=== PATIENT | female | born 1975 | race Caucasian/White ===

== ENCOUNTER 2022-03-11 15:42 | Outpatient (REF) | payer OTHER, SELFPAY ==
--- NOTE | 2022-03-11 11:50 | PAPFT_PTH ---
PATIENT: Nelly Sheldon LOC: [facility] U#:[id number] AGE/SX: 46/F ROOM: RE03/11/[address]: Nataliia Mcghee MD : 1975 BED: DIS: 03/11/2022 SPEC #: [id number] RECD: 03/11/22 17:53 STATUS: SHILPI REQ #: [id number] LEYLA: 03/11/22 11:[address]: Nataliia Mcghee DEPT: [facility] Cytology RECD BY: Marry Harvey Tissues: 1 - CX/ENDOCX FOR PAP SMEARS Procedures: PAP THIN PREP/UVM Screening HPV DNA PROBE Comments: [id number]
== END 2022-03-11 15:43 | disposition home or self-care (01) ==
LOC: LBN 15:42
PROVIDERS: Visit Provider Obstetrics & Gynecology
DX: Z12.4 Encounter for screening for malignant neoplasm of cervix (principal); Z11.51 Encounter for screening for human papillomavirus (HPV)
CPT/HCPCS: 88142; 87624

== ENCOUNTER 2022-03-18 15:10 | Outpatient (REF) | payer OTHER, SELFPAY ==
[2022-03-18 16:08] LABS: ALT 22 U/L (14-59); AST 16 U/L (15-37); Albumin 4.4 g/dL (3.4-5.0); Alkaline Phosphatase 40 U/L (46-116); Anion Gap 8.8 mmol/L (3-11); BUN 13 mg/dL (7-18); Bilirubin, Total 0.7 mg/dL (0.2-1.0); CO2 29.2 mmol/L (21.0-32.0); CREATININE 0.8 mg/dL (0.55-1.02); Calcium 9.1 mg/dL (8.5-10.1); Calculated LDL 118 mg/dL (<100); Chloride 102 mmol/L (98-107); Cholesterol 194 mg/dL (<200); Estimated GFR 93.12 (mL/min/1.73m2); Glucose 77 mg/dL (74-106); HDL Cholesterol 68 mg/dL (40-60); Potassium 3.8 mmol/L (3.5-5.1); Sodium 140 mmol/L (136-145); TSH 3.11 uIU/mL (0.36-3.74); Total Protein 7.6 g/dL (6.4-8.2); Triglyceride 43 mg/dL (<150)
[2022-03-18 16:17] LABS: Vitamin D 25 Total 31.3 ng/mL (30-100)
[2022-03-18 16:26] LABS: FREE T4 1.53 ng/dL (0.76-1.46)
[2022-03-19 20:54] LABS: T3,Free 2.7 pg/mL (2.8-5.3)
[2022-03-19 21:08] LABS: T3, Total 105 ng/dL (97-169)
== END 2022-03-18 15:11 | disposition home or self-care (01) ==
LOC: NCHCN 15:10
PROVIDERS: Visit Provider Nurse Practitioner Family
DX: Z13.220 Encounter for screening for lipoid disorders (principal); E07.9 Disorder of thyroid, unspecified; E55.9 Vitamin D deficiency, unspecified
CPT/HCPCS: 80053; 80061; 82306; 84439; 84443; 84480; 84481

== ENCOUNTER → 2022-04-23 00:25 | Outpatient (CLI) | payer OTHER, SELFPAY ==
--- NOTE | 2022-04-23 07:45 | DI.MAMMO_ITS ---
Exam(s) MAMMO SCREENING EXAM: MAMMO SCREENING CLINICAL HISTORY: screening,Z12.39. TECHNIQUE: Bilateral full field digital CC and MLO mammographic images were obtained with 3D tomosyn thesis and utilizing computer aided detection (CAD). COMPARISON: Prior outside mammograms were reviewed. FINDINGS: There has been no significant change in the appearance and distribution of the fibroglandular tissue which is again noted dense, this somewhat decreasing the sensitivity mammogram for finding hidden und erlying lesions.. There are no CAD designations. There are no new spiculated masses nor malignant appearing microcalcification groups. There is no significant architectural distortion nor skin thickening-retraction. IMPRESSION: No radiographic evidence of malignancy. Dense bilateral fibroglandular tissue again evident. BI-RADS Category 1 - Negative Breast Density - Category C - Heterogeneously dense Breast density Category C or D implies that the patient has dense breast tissue. Dense breast tissue can make it harder to find cancer on a mammogram. Dense breast tissue is also associated with an incr eased risk of breast cancer. This information about the result of the mammogram report was provided to the patient to raise their awareness. Use this report when you speak with the patient about their risks for breast cancer, which includes their family history. At that time, you may recommend additional screening tests (Ultrasoun d or MRI) as these tests may add significant information. A negative radiographic report should not delay biopsy if a dominant or clinically suspicious mass is present. Up to ten percent of cancers are not identified on mammography. A negative report may reinforce clinical impression. Adenosis and dense breasts may obscure an underlying neoplasm. False positive reports average 6 to 10%. Patient will receive a letter notifying them of these results.
== END ==
PROVIDERS: Visit Provider Obstetrics & Gynecology
DX: Z12.31 Encounter for screening mammogram for malignant neoplasm of breast (principal)
CPT/HCPCS: 77063; 77067

== ENCOUNTER 2022-11-11 04:09 | Outpatient (CLI) | payer OTHER, SELFPAY ==
[2022-11-11 16:45] LABS: Abs Immature Grans 0.01 10^3/uL (0.0-0.06); Absolute Basophil Count 0.02 10^3/uL (0.0-0.2); Absolute Eosinophil Count 0.09 10^3/uL (0.0-0.7); Absolute Lymphocyte Count 2.45 10^3/uL (1.2-3.4); Absolute Monocyte Count 0.38 10^3/uL (0.1-0.8); Absolute Neutrophil Count 5.54 10^3/uL (1.2-6.7); Basophils % 0.2; Eosinophils % 1.1; HCT 37.7 % (36.0-46.0); HGB 12.3 g/dL (11.2-15.7); Immature Grans % 0.1; Lymphocytes % 28.9; MCH 28.1 pg (27.0-33.0); MCHC 32.6 % (32.0-36.0); MCV 86 fL (80-95); MPV 11.6 fL (8.0-11.0); Monocytes % 4.5; Neutrophils % 65.2; Platelet Count 243 10^3/uL (130-400); RBC 4.38 10^6/uL (3.93-5.22); RDW 12.8 % (11.7-14.6); RDW-SD 40.5 fL; WBC 8.49 10^3/uL (4.4-10.8)
[2022-11-11 17:04] LABS: Hemoglobin A1C 4.9 % (<5.7)
[2022-11-11 17:28] LABS: Bilirubin Negative (Negative); Blood Trace-lysed (Negative); Clarity Clear (Clear); Glucose Negative (Negative); Ketones Negative (Negative); Leukocyte Esterase Negative (Negative); Nitrite Negative (Negative); Specific Gravity <= 1.005 (1.005-1.025); Urobilinogen 0.2 mg/dL (Up to 0.2)
[2022-11-11 17:39] LABS: Bacteria Negative HPF (Negative); C & S Indicated? No; Casts Negative LPF (Negative); Crystals Negative HPF (Negative); Epithelial Cells Rare HPF (Negative); Mucus Negative (Negative); RBC 0-2 HPF (0-2); WBC 0-2 HPF (0-5)
[2022-11-11 17:43] LABS: Iron 32 ug/dL (50-170)
[2022-11-11 17:46] LABS: Ferritin 55 ng/mL (8-252); TSH 1.79 uIU/mL (0.36-3.74)
[2022-11-11 18:02] LABS: FREE T4 1.17 ng/dL (0.76-1.46)
[2022-11-11 22:39] LABS: T3,Free 2.9 pg/mL (2.8-5.3)
[2022-11-11 23:15] LABS: Thyroglobulin Antibody 72 U/mL (<=60); Thyroperoxidase Antibody <28 U/mL (<=60)
[2022-11-16 15:24] LABS: 25-Hydroxy D Total 44 ng/mL; 25-Hydroxy D2 <4.0 ng/mL; 25-Hydroxy D3 44 ng/mL
[2022-11-17 09:29] LABS: T3 (Triiodothyronine) Reverse 19 ng/dL (10-24)
== END 2022-11-11 04:10 | disposition home or self-care (01) ==
LOC: LBO 04:09
PROVIDERS: Visit Provider Naturopath
DX: E06.3 Autoimmune thyroiditis (principal); G43.809 Other migraine, not intractable, without status migrainosus; K63.9 Disease of intestine, unspecified; L20.89 Other atopic dermatitis; J30.1 Allergic rhinitis due to pollen; E03.9 Hypothyroidism, unspecified; D50.9 Iron deficiency anemia, unspecified; E55.9 Vitamin D deficiency, unspecified; R35.0 Frequency of micturition; R42 Dizziness and giddiness; Z13.1 Encounter for screening for diabetes mellitus
CPT/HCPCS: 36415; 82306; 86376; 81003; 81015; 82728; 83036; 83540; 84439; 84443; 84481; 84482; 85025

== ENCOUNTER 2023-02-03 12:45 | Outpatient (CLI) | payer OTHER, SELFPAY ==
[2023-02-03 09:53] LABS: C-Reactive Protein 0.21 mg/dL (0.0-0.3); Cholesterol 121 mg/dL (<200); HDL Cholesterol 48 mg/dL (40-60); TSH 1.38 uIU/mL (0.36-3.74)
[2023-02-03 09:55] LABS: Triglyceride <25 mg/dL (<150)
[2023-02-03 10:06] LABS: LDL CHOLESTEROL 72 mg/dL (<100)
[2023-02-03 19:05] LABS: T3,Free 5.5 pg/mL (2.8-5.3)
[2023-02-04 17:54] LABS: Apolipoprotein A1 121 mg/dL (>=140)
[2023-02-05 10:03] LABS: Apolipoprotein B, S 65 mg/dL
[2023-02-05 10:12] LABS: Lipoprotein (a) 19 nmol/L (<75)
== END 2023-02-03 12:46 | disposition home or self-care (01) ==
LOC: LBO 12:46
PROVIDERS: Visit Provider Naturopath
DX: E78.00 Pure hypercholesterolemia, unspecified (principal); R53.83 Other fatigue; E07.9 Disorder of thyroid, unspecified; E06.3 Autoimmune thyroiditis
CPT/HCPCS: 36415; 80061; 82172; 83695; 83721; 84443; 84481; 86140

== ENCOUNTER 2023-05-20 02:45 | Outpatient (CLI) | payer OTHER, SELFPAY ==
[2023-05-20 16:57] LABS: Iron 21 ug/dL (50-170)
[2023-05-20 17:09] LABS: Ferritin 57 ng/mL (8-252); TSH 1.65 uIU/mL (0.36-3.74)
[2023-05-20 17:19] LABS: Vitamin D 25 Total 40.1 ng/mL (30-100)
[2023-05-20 17:27] LABS: FREE T4 1.25 ng/dL (0.76-1.46)
[2023-05-21 22:16] LABS: T3,Free 3.4 pg/mL (2.8-5.3)
[2023-05-23 09:02] LABS: Thyroglobulin Antibody 66 U/mL (<=60); Thyroperoxidase Antibody <28 U/mL (<=60)
== END 2023-05-20 02:46 | disposition home or self-care (01) ==
PROVIDERS: Visit Provider Naturopath
DX: E06.3 Autoimmune thyroiditis (principal); G43.809 Other migraine, not intractable, without status migrainosus; K63.9 Disease of intestine, unspecified; L20.89 Other atopic dermatitis; E55.9 Vitamin D deficiency, unspecified
CPT/HCPCS: 36415; 82306; 86376; 82728; 83540; 84439; 84443; 84481

== ENCOUNTER → 2023-05-25 02:19 | Outpatient (CLI) | payer OTHER, SELFPAY ==
--- NOTE | 2023-05-25 | DI.MAMMO_ITS ---
Exam(s) MAMMO SCREENING EXAM: MAMMO SCREENING CLINICAL HISTORY: SCREENING FOR BREAST CANCER Z12.39 TECHNIQUE: Bilateral full field digital CC and MLO mammographic images were obtained with 3D tomosyn thesis and utilizing computer aided detection (CAD). COMPARISON: Available for comparison. FINDINGS: Masses/Architectural Distortion: None seen. Microcalcifications: No suspicious pleomorphic-type are seen. Skin Thickening/Nipple Retraction: None. IMPRESSION: 1. No significant interval change with no specific features of malignancy noted. 2. Unless there is more urgent need, screening mammography is recommended, as per [employer] guidelines. BI-RADS Category 1 - Negative Breast Density - Category C - Heterogeneously dense Breast density category C or D implies that the patient has dense breast tissue. Dense breast tissue is very common and is not abnormal but dense breast tissue can make it harder to find cancer on a ma mmogram. Also, dense breast tissue may increase their breast cancer risk. This information about the result of the mammogram report was provided to the patient to raise their awareness. Use this report when you speak with the patient about their risks for breast cancer, which includes their family hist ory. At that time, you may recommend for more screening tests (Ultrasound or MRI) as they might be us eful based on their risk. A negative radiographic report should not delay biopsy if a dominant or clinically suspicious mass is present. Up to ten percent of cancers are not identified on mammography. A negative report may reinforce clinical impression. Adenosis and dense breasts may obscure an underlying neoplasm. False positive reports average 6 to 10%. Patient will receive a letter notifying them of these results.
== END ==
PROVIDERS: Visit Provider Nurse Practitioner Family
DX: Z12.31 Encounter for screening mammogram for malignant neoplasm of breast (principal)
CPT/HCPCS: 77063; 77067

== ENCOUNTER 2023-05-31 09:43 | Day surgery (SDC) | payer OTHER, SELFPAY ==
--- NOTE | 2023-05-30 13:56 | PDOC.DSDIS_ITS ---
Date of service: 05/31/23 Time of Service: 12:53 Discharge Plan Disposition Patient Disposition: Home Condition: Good Discharge Details Reason For Visit: colon scope Attending Provider: Annita Stringer Primary Care Provider: Aurora Ni Home Meds and New Rx's Prescriptions: No Action levothyroxine 112 mcg capsule 112 mcg PO DAILY magnesium glycinate 100 mg magnesium capsule 360 mg PO DAILY cholecalciferol (vitamin D3) 25 mcg (1,000 unit) capsule 25 mcg PO DAILY multivitamin Tablet 1 tab PO DAILY liothyronine 5 mcg tablet 5 mcg PO DAILY omega-3 fatty acids 500 mg capsule 500 mg PO DAILY Discharge Instructions Additional Instructions: DSU Colonoscopy Post- Op Instructions Instructions for Everyone who is given Anesthesia: For your safety, please do the following for the next twenty-four (24) hours: *Do Not operate a motor vehicle (car, truck, motorcycle, etc.) *Do Not drink alcoholic beverages or use any recreational drugs for the first 24 hours or while taking pain medications. The medications in your body may have a reaction that can be dangerous. *Do Not make any important decisions or sign any important papers. Findings: Colon appears normal by visual exam. Follow up: Biopsies were taken today. My office will send you a letter in 2 to 3 weeks time with the results of the biopsy and when we should repeat the colonoscopy, 2 to 5 years. 1. No lifting over 20 pounds or strenuous activity for the first 24 hours after your procedure. After 24 hours there are no restrictions on your activity but you may feel fatigued for a few days. 2. After you arrive home you may have a light meal and return to your normal diet as you can tolerate it without feeling sick to your stomach. 3. You may have a bloated, gaseous feeling in your belly (abdomen) after a colonoscopy. Passing gas and belching will help. Walking or lying down on your left side with your knees flexed may relieve the discomfort. Call the office at [phone] (Office) or [phone] (Hospital) right away if you notice any of the following: a.Vomiting of blood or ?coffee ground stools?. b.Rectal bleeding 1Tbsp, blood clots or continuous bleeding. c.Severe belly (abdominal) pain. d.A hard distended belly (abdomen) and an inability to pass gas. 4. Please don?t expect to have a normal BM (bowel movement) for 2-3 days after your procedure. 5. If there are questions regarding the findings of your procedure, please contact your doctor 6. If you are unable to contact your doctor with a problem, contact the hospital at [phone]. 7. Continue all your regular medications unless directed otherwise. I understand the above instructions and have no questions. Signature of Patient or Adult Escort Name of Responsible Adult Escort Signature of Nurse Date/Time Activity:: see above Diet:: see above Discharge Orders Discharge Orders: Discharge Order (Routine); Ordered 05/31/23 Ordered By: Annita Stringer DS: Diagnosis Discharge Diagnosis (1) Screening for malignant neoplasm of colon performed: Status: Acute Asessment and Plan: The patient is seen and examined after their colonoscopy.? The patient has been able to pass gas.? They are not having abdominal pain.? They have been able to tolerate liquids and a snack.? They do not have any nausea or vomiting.? They are not having any chest pain or shortness of breath.??? They are not having any rectal bleeding. Their vital signs have been stable-see nursing notes. We discussed findings during their colonoscopy, and any biopsies that were done/polyps that were removed. The patient will be sent a letter with any biopsy results, and when to repeat the colonoscopy.-see discharge instructions. Patient was given explicit instructions to follow-up regarding colonoscopy-refer to discharge instructions.? We reviewed resumption of medications. Patient verbalized understanding and discharged in stable and satisfactory condition- See nursing notes. (2) Migraine: Status: Chronic (3) Vitamin D deficiency: (4) Hypothyroidism: (5) Crohn disease:
--- NOTE | 2023-05-30 13:58 | W.COLOREPORT ---
Date of service: 05/31/23 Time of Service: 12:50 Colonoscopy Report Date of procedure: 05/31/23 Pre-op diagnosis general: CRC screening/history of Crohn's Post-op diagnosis procedure note: same Surgeon: Annita Stringer Anesthesia Type: General:No Airway Estimated blood loss (mL): 2 Pathology: other Complications: None Disposition: same day Prep: Miralax/Dulcolax Procedure Description: After informed consent was obtained the patient was taken to the procedure room and placed in a left decubitous position. Monitors were applied and a time out was done. The patients name, date of , procedure, allergies to medications and metal in their body was reviewed. The patient was then sedated. Once sedated and comfortable a rectal exam was done. External exam-very small external hemorrhoidal tags.. Internal exam revealed a normal sphincter tone and no palpable masses. The scope was then introduced and retrofelexed. No internal hemorrhoids were identified. The scope was then advanced to the cecum without difficulty. The TI and appendiceal orifice were identified. The prep was BBPS 3 in all segments for a total of 9. The scope was then slowly retracted over 16 minutes back into the rectum. There are no polyps, AVMs, or diverticula visualized. The mucosa is pink and healthy with a normal vascular pattern. The ileocecal valve was intubated. Biopsies are taken in terminal ileum/cecum/90, 80, 70, 60, 50, 40, 30, 20 cm in the rectum. All specimens are retrieved and no bleeding is noted.. The scope was removed and the patient was woken up and taken back to Same day surgery in stable condition. The patient tolerated the procedure well and there were no immediate complications. Follow up: The patient should follow up in 2-5 years unless they develop changes in bowel habits or other new gastrointestinal complaints.
[2023-05-31 10:23] VITALS: BP 110/64; PULSE 64; RESP 16; TEMP 36.9; O2SAT 100
--- NOTE | 2023-05-31 10:49 | W.ANESPRE ---
General Info Date of Service Date Performed: 05/31/23 Height: 5 ft 3 in Weight: 56.1 kg Body Mass Index (BMI): 21.9 Surgical Procedure: Operation Date: 05/31/23 11:20 Proposed Procedure Side Surgeon michelle Stringer, DO Meds Allergies and Home Medications Home Medication Medication Instructions Recorded cholecalciferol (vitamin D3) 25 25 mcg PO DAILY 03/11/22 mcg (1,000 unit) capsule levothyroxine 112 mcg capsule 112 mcg PO DAILY 03/11/22 magnesium glycinate 360 mg PO DAILY 03/11/22 liothyronine 5 mcg tablet 5 mcg PO DAILY 03/23/23 omega-3 fatty acids 500 mg capsule 500 mg PO DAILY 03/23/23 multivitamin 1 tab PO DAILY 05/18/23 Current Visit Medications: Current Medications Generic Name Dose Route Start Last Admin Trade Name Freq PRN Reason Stop Dose Admin Hyoscyamine Sulfate 0.125 mg 05/31/23 01:54 Hyoscyamine 0.125 Mg Sl/Oral/Chew SL 06/30/23 01:53 DIRECTED PRN Ringer's Solution 1,000 mls @ 80 mls/hr 05/31/23 06:00 IV 05/31/23 23:59 INFUSION [facility] IV Miscellaneous Supplies 1 each 05/31/23 06:00 Iv Access IV 05/31/23 23:59 DIRECTED JUAN FRANCISCO Ondansetron HCl 4 mg 05/31/23 01:54 Ondansetron 4 Mg/2 Ml Vial IVP 06/30/23 01:53 Q4H PRN PRN Nausea / Vomiting Sodium Chloride 0 ml 05/31/23 06:00 Normal Saline Flush 10 Ml Syr IV 05/31/23 23:59 PRN PRN Sodium Chloride 0 ml 05/31/23 06:00 Normal Saline 10 Ml Vial IJ 05/31/23 23:59 DIRECTED PRN Sterile Water 0 ml 05/31/23 06:00 Water,Injection,Sterile 10 Ml Vial IJ 05/31/23 23:59 DIRECTED PRN PFSH Active Problems Active Problems: Problem Status Onset Code Screening for malignant neoplasm of colon performed Z12.11 Migraine G43.909 Medical History Medical History Vitamin D deficiency Hypothyroidism Eczema Crohn disease dx'd early 20s, on meds for a few years, then went off and has been able to manage with diet/lifestyle Tobacco Smoking/Tobacco Use Status: Never Alcohol Alcohol Intake: current Alcohol intake frequency: a few times a month Substance Use Substance use: Never Substance use type: does not use Prental History History 4 Para 2 Hx # Term Pregnancies Multiple births Hx # Pregnancies Ectopic pregnancies AB induced Hx Number of Living Children AB spontaneous 2 Past Pregnancies Del. Date GA/Weeks # Preg Succ Route Wgt Sex Labor Lgth Anesthesia Location Prov Complic 04/19/12 41 No Yes 3628.739 g Female [facility] 12/11/14 38 No Yes vaginal 3175.147 g Female [facility] Delivery Date: 04/19/12 Last Updated by: Marly Raphael [place] Delivery Date: 12/11/14 Last Updated by: Marly Raphael [place] Vital Signs and Lab Results Vital Signs Most Recent Vital Signs in EMR: Most Recent Vital Signs Temp Pulse Resp BP Pulse Ox 36.9 C 64 16 110/64 100 05/31/23 10:23 05/31/23 10:23 05/31/23 10:23 05/31/23 10:23 05/31/23 10:23 Lab Results Blood Type / Crossmatch: No Data to Display Complete Blood Count: No Data to Display Complete Metabolic Panel: No Data to Display Liver Function Panel: No Data to Display Coagulation Panel: No Data to Display Cardiac Panel: No Data to Display Arterial Blood Gas: No Data to Display Venous Blood Gas: No Data to Display Pancreas Panel: No Data to Display Thyroid Panel: Thyroid Stimulating Hormone (TSH) 1.65 uIU/mL (0.36-3.74) 05/20/23 15:35 Infectious Disease: No Data to Display Blood Cultures: No Data to Display Toxicology Panel: No Data to Display Panel: No Data to Display Anesthesia Assessment and Plan Anesthesia History Personal History: No History of Anesthesia Complications Family History: No Family History of Anesthesia Complications Exercise Tolerance Exercise Tolerance: Metabolic Equivalents>4 Pertinent Negatives Pertinent Negatives: No Symptoms of GERD, No Major Cardiovascular Symptoms or Complaints, No Major Pulmonary Symptoms or Complaints and No History of CVA/TIA Cardiac & Pulmonary Exam Cardiac Exam: Normal S1/S2 Heart Sounds Pulmonary Exam: Clear Bilateral Breath Sounds Implantable Cardiac Device Does patient have a Pacemaker or an ICD?: No Airway Exam Known Difficult Airway: No Mallampati Class: 3 Mouth Opening: Normal (> 3cm) Thyromental Distance: Greater than 3 cm Neck Range of Motion: Full ROM Neck Circumference: Normal Teeth Condition: Normal Dentition ASA Classification ASA Score: ASA 2 Emergency Case?: No NPO Status NPO Status: NPO Clears >2 hours, Solids >8 hours Status Status: Negative HCG Anesthesia Plan Resuscitation Status: Full Code Anesthesia Technique: General Anesthesia Airway Planned: Natural Airway Monitors Used: Standard Monitors
[2023-05-31] MEDS: Lactated Ringers 1,000 ML 80 ML IV (11:04)
[2023-05-31 11:32] VITALS: BMI 21.9
--- NOTE | 2023-05-31 12:17 | BOWEL_PTH ---
PATIENT: Nelly Sheldon LOC: [facility] U#:[id number] AGE/SX: 47/F ROOM: RE05/31/[address]: Annita Stringer : 1975 BED: DIS: 05/31/2023 SPEC #: [id number] RECD: 05/31/23 12:57 STATUS: SHILPI RE #: [id number] LEYLA: 05/31/23 12:[address]: Annita Stringer DEPT: Surgical Specimen RECD BY: Marry Harvey ENTERED: 05/31/23 13:00 SP TYPE: Bowel OTHR DR: MIGUEL A HUIZAR Tissues: 1 - BIOPSY BOWEL 2 - BIOPSY BOWEL 3 - BIOPSY BOWEL 4 - BIOPSY BOWEL 5 - BIOPSY BOWEL 6 - BIOPSY BOWEL 7 - BIOPSY BOWEL 8 - BIOPSY BOWEL 9 - BIOPSY BOWEL 10 - BIOPSY BOWEL 11 - BIOPSY BOWEL Procedures: GROSS AND MICRO LEVEL 4 Comments: [id number]
[2023-05-31 12:40] VITALS: BP 95/56; PULSE 72; RESP 18; TEMP 36.6; O2SAT 100
--- NOTE | 2023-05-31 13:50 | W.ANESPOSTOP ---
Postoperative Evaluation Date, Time and Location Date Performed: 05/31/23 Time Performed: 12:36 Patient Location: Day Surgery Unit Vital Signs Most Recent Imported Vital Signs: Most Recent Vital Signs Temp Pulse Resp BP Pulse Ox 36.6 C 72 18 95/56 L 100 05/31/23 12:40 05/31/23 12:40 05/31/23 12:40 05/31/23 12:40 05/31/23 12:40 Pain Score Most Recent Pain Score: Most Recent Pain Score Pain Level 0 05/31/23 12:40 Assessment Mental Status: Awake (Alert & Oriented to Patient Baseline) Airway and Respiratory Function: Patent airway with normal (patient baseline) respiratory exam Cardiovascular Function: Hemodynamically Stable Hydration Status: Adequately Hydrated Nausea & Vomiting: No Nausea or Vomiting Pain: Pt. Denies Any Pain Peripheral Nerve Block: Patient did not receive a nerve block
== END 2023-05-31 13:25 | disposition home or self-care (01) ==
PROVIDERS: PCP Nurse Practitioner Family; Visit Provider Surgery
PROC: 0DJD8ZZ Inspection of Lower Intestinal Tract, Via Natural or Artificial Opening Endoscopic (ICD-10-PCS; CPT 45378; principal; 2023-05-31 11:15)
DX: Z12.11 Encounter for screening for malignant neoplasm of colon (principal); K50.90 Crohn's disease, unspecified, without complications; K52.9 Noninfective gastroenteritis and colitis, unspecified
CPT/HCPCS: 45380; 81025; 88305; J2001; J2704

== ENCOUNTER 2023-11-21 03:20 | Outpatient (CLI) | payer OTHER, SELFPAY ==
[2023-11-21 10:08] LABS: Vitamin D 25 Total 51.9 ng/mL (30-100)
[2023-11-21 10:25] LABS: FREE T4 1.07 ng/dL (0.76-1.46)
[2023-11-21 17:35] LABS: T3,Free 3.3 pg/mL (2.8-5.3)
[2023-11-21 18:32] LABS: Thyroglobulin Antibody 46 U/mL (<=60); Thyroperoxidase Antibody <28 U/mL (<=60)
== END 2023-11-21 03:21 | disposition home or self-care (01) ==
PROVIDERS: Visit Provider Naturopath
DX: G43.809 Other migraine, not intractable, without status migrainosus (principal); K63.9 Disease of intestine, unspecified; L20.89 Other atopic dermatitis; E03.9 Hypothyroidism, unspecified; E55.9 Vitamin D deficiency, unspecified; E06.3 Autoimmune thyroiditis; D50.9 Iron deficiency anemia, unspecified
CPT/HCPCS: 36415; 82306; 86376; 84439; 84443; 84481

== ENCOUNTER 2024-05-31 00:22 | Outpatient (CLI) | payer OTHER, SELFPAY ==
--- NOTE | 2024-05-31 08:44 | DI.MAMMO_ITS ---
Exam(s) MAMMO SCREENING EXAM: MAMMO SCREENING CLINICAL HISTORY: screening,z12.31 TECHNIQUE: Mammograms were interpreted according to the usual protocol including computer analysis w [employer] CAD system, tomosynthesis and C-view imaging. COMPARISON: 2017 through 2023 FINDINGS: The breasts are composed of heterogeneously dense fibroglandular densities, Breast Density category C . No suspicious masses or suspicious microcalcifications are seen. No skin thickening or abnormal axillary lymph nodes are seen. There has been no significant change from prior exams. IMPRESSION: BI-RADS Category 1, Negative mammogram. Yearly screening mammography is recommended. Breast Density Category C, heterogeneously Dense. The mammogram demonstrates the patient's breast tissue is dense. Dense breast tissue is very common a nd is not abnormal but dense breast tissue can make it harder to find cancer on a mammogram. Also, de nse breast tissue may increase breast cancer risk. This information about the result of the mammogram report was provided to the patient to raise their awareness. Use this report when you speak with the patient about their risks for breast cancer, which includes their family history. At that time, you may recommend additional screening tests (Ultrasound or MRI) as they might be useful based on their r isk. A negative radiographic report should not delay biopsy if a dominant or clinically suspicious mass is present. Up to ten percent of cancers are not identified on mammography. A negative report may reinforce clinical impression. Adenosis and dense breasts may obscure an underlying neoplasm. False positive reports average 6 to 10%.
== END 2024-05-31 00:42 ==
PROVIDERS: PCP Nurse Practitioner Family; Visit Provider Obstetrics & Gynecology
DX: Z12.31 Encounter for screening mammogram for malignant neoplasm of breast (principal); R92.333 Mammographic heterogeneous density, bilateral breasts
CPT/HCPCS: 77063; 77067

== ENCOUNTER 2024-08-09 02:34 | Outpatient (CLI) | payer OTHER, SELFPAY ==
[2024-08-09 07:42] LABS: Abs Immature Grans 0.01 10^3/uL (0.0-0.06); Absolute Basophil Count 0.01 10^3/uL (0.0-0.2); Absolute Eosinophil Count 0.05 10^3/uL (0.0-0.7); Absolute Lymphocyte Count 2.14 10^3/uL (1.2-3.4); Absolute Monocyte Count 0.44 10^3/uL (0.1-0.8); Absolute Neutrophil Count 3.81 10^3/uL (1.2-6.7); Basophils % 0.2 %; Eosinophils % 0.8 %; HCT 39.5 % (36.0-46.0); HGB 12.7 g/dL (11.2-15.7); Immature Grans % 0.2 %; Lymphocytes % 33.1 %; MCH 27.1 pg (27.0-33.0); MCHC 32.2 % (32.0-36.0); MCV 84 fL (80-95); MPV 11.3 fL (8.0-11.0); Monocytes % 6.8 %; Neutrophils % 58.9 %; Platelet Count 210 10^3/uL (130-400); RBC 4.68 10^6/uL (3.93-5.22); RDW-SD 40.3 fL; WBC 6.46 10^3/uL (4.4-10.8)
[2024-08-09 07:44] LABS: Bilirubin Negative (Negative); Blood Negative (Negative); Clarity Clear (Clear); Glucose Negative (Negative); Ketones Negative (Negative); Leukocyte Esterase Moderate (Negative); Nitrite Negative (Negative); Specific Gravity 1.015 (1.005-1.025); Urobilinogen 0.2 mg/dL (Up to 0.2)
[2024-08-09 07:51] LABS: Bacteria Moderate HPF (Negative); C & S Indicated? No/Sq. Contamination; Casts Negative LPF (Negative); Crystals Negative HPF (Negative); Epithelial Cells Many HPF (Negative); Mucus Trace (Negative); RBC 0-2 HPF (0-2)
[2024-08-09 08:29] LABS: ALT 19 U/L (14-59); AST 16 U/L (15-37); Albumin 3.9 g/dL (3.4-5.0); Alkaline Phosphatase 55 U/L (46-116); Anion Gap 5.4 mmol/L (3-11); BUN 12 mg/dL (7-18); Bilirubin, Total 0.6 mg/dL (0.2-1.0); CO2 30.6 mmol/L (21.0-32.0); CREATININE 0.9 mg/dL (0.55-1.02); Calcium 8.9 mg/dL (8.5-10.1); Calculated LDL 81 mg/dL (<100); Chloride 104 mmol/L (98-107); Cholesterol 149 mg/dL (<200); Estimated GFR 79.85 (mL/min/1.73m2); Ferritin 30 ng/mL (8-252); Folate 10.4 ng/mL (8.6-20.0); Glucose 87 mg/dL (74-106); HDL Cholesterol 58 mg/dL (>or=50); Iron 115 ug/dL (50-170); Potassium 3.7 mmol/L (3.5-5.1); Sodium 140 mmol/L (136-145); TSH 1.36 uIU/mL (0.36-3.74); Total Protein 7.5 g/dL (6.4-8.2); Triglyceride 54 mg/dL (<150); Vitamin B12 507 pg/mL (193-986); Vitamin D 25 Total 52 ng/mL (30-100)
[2024-08-09 13:09] LABS: FREE T4 1.51 ng/dL (0.76-1.46)
[2024-08-09 19:53] LABS: T3,Free 3.2 pg/mL (2.8-5.3)
[2024-08-09 22:27] LABS: Thyroglobulin Antibody 50 U/mL (<=60); Thyroperoxidase Antibody <28 U/mL (<=60)
== END 2024-08-09 02:35 | disposition home or self-care (01) ==
PROVIDERS: PCP Nurse Practitioner Family; Visit Provider Naturopath
DX: E06.3 Autoimmune thyroiditis (principal); D50.9 Iron deficiency anemia, unspecified; R42 Dizziness and giddiness; R53.83 Other fatigue; E55.9 Vitamin D deficiency, unspecified; Z13.220 Encounter for screening for lipoid disorders; D53.9 Nutritional anemia, unspecified; L20.89 Other atopic dermatitis; G43.809 Other migraine, not intractable, without status migrainosus; R35.0 Frequency of micturition
CPT/HCPCS: 36415; 80053; 80061; 82306; 81003; 81015; 82607; 82728; 82746; 83540; 84439; 84443; 84481; 85025; 86376; 86800

== ENCOUNTER 2025-01-18 09:12 | Outpatient (CLI) | payer OTHER, SELFPAY ==
[2025-01-18 15:28] LABS: Ferritin 35 ng/mL (8-252); Iron 96 ug/dL (50-170); TSH 2.11 uIU/mL (0.36-3.74); Vitamin D 25 Total 63 ng/mL (30-100)
[2025-01-19 00:29] LABS: T3,Free 3.4 pg/mL (2.8-5.3)
== END 2025-01-18 09:13 | disposition home or self-care (01) ==
PROVIDERS: PCP Nurse Practitioner Family; Visit Provider Naturopath
DX: E03.9 Hypothyroidism, unspecified (principal); G43.809 Other migraine, not intractable, without status migrainosus; N95.8 Other specified menopausal and perimenopausal disorders; D50.9 Iron deficiency anemia, unspecified; N94.3 Premenstrual tension syndrome; E06.3 Autoimmune thyroiditis; R42 Dizziness and giddiness
CPT/HCPCS: 36415; 82306; 82627; 82728; 83540; 84140; 84144; 84439; 84443; 84480; 84481